=== PATIENT | female | born 1970 | race Caucasian/White ===

== ENCOUNTER 2018-11-30 16:10 | Emergency (ER) | payer OTHER ==
[~2018-11-30] VITALS: Ht 182.9 cm; Wt 79.5 kg
[2018-11-30] MEDS ORDERED: DIPH25CA61 PO (16:29)
[2018-11-30] MEDS ORDERED: ALBU18HF INH (16:29)
--- NOTE | 2018-11-30 16:29 | NUR ---
THEODORE RUPA from home on legal 1999-failure to care for self, hearing voices. Per EMS pt was found to have multiple animals in her home and on her property as well as bed bugs seen on scene. Pt compliant with staff direction, A&O x4. Pt with fast rambling speech. Pt hearing voices as well. Pt states "Do you hear that recording?! The police have allerted Patrice because he abandoned his ." This RN does not hear any sounds in the room other than the pt. [facility] All pt belongings placed in multiple bags, labeled and secured in locker. Pt placed in gown, calvin into secure room and given Sprite to drink.
--- NOTE | 2018-11-30 16:34 | NUR ---
Dr. Pressley at bedside to evaluate pt.
--- NOTE | 2018-11-30 16:56 | NUR ---
Pt refusing labs and urine sample. POC discussed with pt. Pt ambulatory to bathroom and back to bed with steady gait, urine sample obtained. Pt states she will allow labor economics teacher to draw her blood. Room remains secured, sitter within eyesight of pt, all safety measures observed.
[2018-11-30 17:12] LABS: BASOPHILS % (AUTO) 1 % (0-1); EOSINOPHILS # (AUTO) 0.01 x10^3/uL (0-0.4); EOSINOPHILS % (AUTO) 0 % (1-7); LYMPHOCYTES # (AUTO) 2.29 x10^3/uL (1-3.4); LYMPHOCYTES % (AUTO) 21 % (22-44); MD NO; MEAN CORPUSCULAR HEMOGLOBIN 31.3 pg (27.0-34.8); MEAN CORPUSCULAR HGB CONC 33.8 g/dL (32.4-35.8); MEAN CORPUSCULAR VOLUME 92.5 fL (80-100); MEAN PLATELET VOLUME 11.2 fL (7.4-10.4); MONOCYTES # (AUTO) 0.93 x10^3/uL (0.2-0.8); MONOCYTES % (AUTO) 9 % (2-9); NEUTROPHILS # (AUTO) 7.41 x10^3/uL (1.8-6.8); NEUTROPHILS % (AUTO) 69 % (42-75); PLATELET COUNT 270 x10^3/uL (130-400); RED BLOOD COUNT 4.57 x10^6/uL (3.82-5.3); RED CELL DISTRIBUTION WIDTH 13.3 % (9.6-15.2)
[2018-11-30 17:16] LABS: AMPHETAMINE SCREEN, URINE Negative (Negative); BARBITURATE SCREEN, URINE Negative (Negative); BENZODIAZEPINE SCREEN, URINE Negative (Negative); CANNABINOID SCREEN, URINE Negative (Negative); COCAINE SCREEN, URINE Negative (Negative); METHADONE SCREEN, URINE Negative (Negative); OPIATE SCREEN, URINE Negative (Negative)
[2018-11-30 17:22] LABS: ALBUMIN 4.4 g/dL (3.4-5.0); ANION GAP 7 mmol/L (5-15); CALCIUM 9.1 mg/dL (8.5-10.1); CHLORIDE 107 mmol/L (98-107); CREATININE 0.75 mg/dL (0.55-1.02)
[2018-11-30 17:30] LABS: SALICYLATE LEVEL 4.8 mg/dL (2.8-20.0)
[2018-11-30 17:31] LABS: ACETAMINOPHEN < 2 mcg/mL (10-30)
--- NOTE | 2018-11-30 17:46 | NUR ---
Pt provided with coffee per request. Meal tray ordered.
--- NOTE | 2018-11-30 17:55 | NUR ---
Pt provided with meal tray, psych precautions. Pt denies other needs.
--- NOTE | 2018-11-30 18:36 | NUR ---
PT WITH [facility]. SPOKE WITH DUONG AT [facility] TO TRANSFER. DENIED PER DUONG
--- NOTE | 2018-11-30 18:40 | NUR ---
PACKET FAXED TO [facility], [facility], [facility] AND [facility]
--- NOTE | 2018-11-30 19:26 | NUR ---
PT UPDATED ON POC. INFORMED PHYSICIAN WILL COME SPEAK WITH PT AND UPDATE ON POC. EXPLAINED TO PT SHE IS ON A LEGAL HOLD FROM THE POLICE DEPARTMENT. PT STARTING TO GET UPSET SAYING "SHE DOES NOT NEED TO BE ON A LEGAL HOLD THAT THE ANIMALS WERE ALIVE WHEN SHE WAS TAKEN FROM HER HOME AND THERE IS NO ONE THERE TO TAKE CARE OF THEM." PT STANDING IN DOORWAY WANTING TO WALK IN HALLWAY. SITTER AT DOOR WITH PATIENT.
--- NOTE | 2018-11-30 19:43 | NUR ---
SPOKE WITH BETTY AT [facility] UPDATE ON PT GIVEN AND ANSWERED ALL QUESTIONS. STATES PHYSICIAN IS WILLING TO LOOK AT PTS CHART IF WE WOULD BE WILLING TO GET A CT SCAN OF PTS HEAD. WILL NOTIFY ER PHYSICIAN AND CALL HER BACK
[2018-11-30] MEDS ORDERED: LORazepam 1MG TABLET ONE (19:50)
[2018-11-30] MEDS ORDERED: LORazepam 1MG TABLET PO ONE (20:00)
--- NOTE | 2018-11-30 20:01 | NUR ---
PT DID AGREE FOR CT SCAN, TAKEN NOW WITH SATNAM COLLINS AND CARMEN. DID OFFER MEDICATION TO PATIENT TO HELP RELAX WHICH SHE REFUSED NUMEROUS TIMES.
--- NOTE | 2018-11-30 20:41 | NUR ---
TP RN: CT RESULTS FAXED TO [facility] PER [facility] MD REQUEST PRIOR TO ACCEPTING PT
--- NOTE | 2018-11-30 21:36 | NUR ---
TP RN: [facility] CALLED BACK, STATE THEY WILL CALL THE DOCTOR NOW TO INQUIRE ABOUT ADMISSION. IF [facility] UNABLE TO TAKE PT, [facility]N WILL ADMIT.
--- NOTE | 2018-11-30 21:48 | NUR ---
PT GIVEN CRAYONS AND WORD PUZZLE PER REQUEST. POC DISCUSSED. PT DENIES FURTHER NEEDS AT THIS TIME.
--- NOTE | 2018-11-30 22:04 | NUR ---
Per Nancy at [facility], Pt is being accepted by DR. Bonilla. Pt transfer to be set as soon as possible
--- NOTE | 2018-11-30 22:14 | NUR ---
TP RN: PER JESSICA KWOK AT [facility], PT ACCEPTED BY MD [facility], [facility] CONTACTED & [facility] FAXED FOR TRANSPORT. [facility] ETA [phone]
--- NOTE | 2018-11-30 23:23 | NUR ---
[facility] CALLED AND STATES UPDATED ETA IS [phone]
--- NOTE | 2018-11-30 23:56 | NUR ---
[facility] AT BEDSIDE AND REPORT GIVEN. PT UPDATED ON POC. AGREED TO TRANSFER. AMBULATED OUT OF ER
[2018-11-30 23:58] VITALS: BP 126/80
== END 2018-12-01 00:01 ==
LOC: ED 18:04
DX: F23 Brief psychotic disorder (principal); F22 Delusional disorders
CPT/HCPCS: 36415; 70450; 80048; 80307; 80329; 82040; 84703; 85025; 99285; G0480